=== PATIENT | male | born 1935 | race Hispanic/Latino ===

== ENCOUNTER 2017-01-26 14:09 | Inpatient (IN) | payer MEDICARE, BC ==
[2017-01-26 14:50] VITALS: BMI 26.2
--- NOTE | 2017-01-26 14:57 | ED PDOC ---
Arrival/HPI - General Chief Complaint: Medical Clearance Time Seen by Provider: 01/26/17 14:54 Historian: Patient - History of Present Illness Narrative History of Present Illness (Text): 01/26/17 14:55 81 year old male with a past medical history that includes COPD, not on home O2 , sent by PMD for evaluation of shortness of breath, cough, and decreased appetite for the past five days. Denies fever/chills, abdominal pain, chest pain , palpitations, dizziness, lower extremity swelling, urinary/bowel changes, headache, or vision changes. PMD: Dr. Baez Time/Duration: < week Symptom Onset: Gradual Symptom Course: Unchanged Modifying Factors (Text): None Associated Symptoms (Text): None Past Medical History - Provider Review Nursing Documentation Reviewed: Yes - Infectious Disease Hx of Infectious Diseases: None - Tetanus Immunization Tetanus Immunization: Unknown - Cardiac Hx Cardiac Disorders: Yes Hx Atrial Fibrillation: Yes Hx Hypertension: Yes - Pulmonary Hx Chronic Obstructive Pulmonary Disease (COPD): Yes - Neurological Hx Neurological Disorder: Yes - HEENT Hx HEENT Disorder: Yes Hx Cataracts: Yes (BILATERAL SX) Hx Deafness: Yes - Renal Hx Renal Disorder: No - Endocrine/Metabolic Hx Endocrine Disorders: No - Hematological/Oncological Hx Blood Disorders: Yes Hx Cancer: Yes (colon, skin) - Integumentary Hx Dermatological Disorder: Yes Hx Melanoma: Yes (TIP OF NOSE AND SHOULDERS) - Musculoskeletal/Rheumatological Hx Musculoskeletal Disorders: Yes Hx Falls: Yes Hx Gout: Yes Hx Osteoarthritis: Yes Hx Unsteady Gait: Yes (CANE) - Gastrointestinal Hx Gastrointestinal Disorders: Yes Other/Comment: COLON SURGERY - Genitourinary/Gynecological Hx Genitourinary Disorders: No - Psychiatric Hx Depression: No Hx Emotional Abuse: No Hx Physical Abuse: No Hx Substance Use: No - Surgical History Other/Comment: colon surgery,oral surgery - Anesthesia Hx Anesthesia Reactions: No - Suicidal Assessment Feels Threatened In Home Enviroment: No Family/Social History - Physician Review Nursing Documentation Reviewed: Yes Family/Social History: Unknown Family HX Smoking Status: Former Smoker Hx Alcohol Use: Yes (WINE DAILY) Hx Substance Use: No Hx Substance Use Treatment: No Allergies/Home Meds Allergies/Adverse Reactions: Allergies No Known Allergies Allergy (Verified 01/26/17 14:46) Home Medications: Home Meds Medication Instructions Recorded Confirmed Allopurinol 300 mg PO DAILY 12/10/14 03/09/16 Tamsulosin [Flomax] 0.4 mg PO DAILY 12/10/14 03/09/16 Warfarin [Coumadin] 2 mg PO DAILY 12/10/14 03/09/16 Digoxin [Lanoxin] 0.125 mg PO DAILY 03/09/16 03/09/16 Folic Acid 1 tab PO DAILY 03/09/16 03/09/16 Metoprolol Tartrate 75 mg PO DAILY 03/09/16 03/09/16 Omeprazole 20 mg PO DAILY 03/09/16 03/09/16 Simvastatin 10 mg PO DAILY 03/09/16 03/09/16 Review of Systems - Review of Systems Constitutional: absent: Fevers Eyes: absent: Vision Changes ENT: absent: Sore Throat Respiratory: SOB, Cough Cardiovascular: absent: Chest Pain, Palpitations Gastrointestinal: Appetite Changes (decreased). absent: Abdominal Pain, Hematochezia Genitourinary Male: absent: Dysuria, Frequency, Hematuria Musculoskeletal: absent: Back Pain Skin: absent: Rash Neurological: absent: Headache, Dizziness Endocrine: absent: Diaphoresis Psychiatric: absent: Depression Physical Exam Vital Signs Reviewed: Yes Vital Signs Temp Pulse Resp BP Pulse Ox 01/26/17 16:50 134/84 01/26/17 16:41 117 H 18 134/83 97 01/26/17 14:40 99.1 F 116 H 18 118/71 97 01/26/17 14:09 99.1 F 116 H 18 118/71 97 Temperature: Afebrile Blood Pressure: Normal Pulse: Tachycardic Respiratory Rate: Normal Appearance: Positive for: Well-Appearing, Non-Toxic, Comfortable Pain Distress: None Mental Status: Positive for: Alert and Oriented X 3 - Systems Exam Head: Present: Atraumatic, Normocephalic Pupils: Present: PERRL Conjunctiva: Present: Normal Mouth: Present: Moist Mucous Membranes Pharnyx: Present: Normal. No: ERYTHEMA, EXUDATE Neck: Present: Normal Range of Motion Respiratory/Chest: Present: Good Air Exchange, Wheezes. No: Respiratory Distress, Accessory Muscle Use Cardiovascular: Present: Normal S1, S2, Irregular Rhythm, Tachycardic. No: Murmurs Abdomen: Present: Normal Bowel Sounds. No: Tenderness, Distention, Peritoneal Signs Back: Present: Normal Inspection Upper Extremity: Present: Normal Inspection. No: Cyanosis, Edema Lower Extremity: Present: Normal Inspection. No: Edema Neurological: Present: GCS=15, CN II-XII Intact, Speech Normal Skin: Present: Warm, Dry, Normal Color. No: Rashes Psychiatric: Present: Alert, Oriented x 3, Normal Insight, Normal Concentration Medical Decision Making ED Course and Treatment: Impression: 81 year old male with a past medical history that includes COPD, not on home O2, sent by PMD for evaluation of shortness of breath, cough, and decreased appetite for the past five days. Differential Diagnosis included but are not limited to: COPD exacerbation vs pneumonia Plan: -- EKG, Chest X-ray -- Atrovent, SoluMedrol, Robitussin, Xopenex -- Labs -- Reassess and disposition Prior Visits: Notes and results from previous visits were reviewed. Patient last seen in the ED on 03/09/16 for dyspnea and admitted for obstructive chronic bronchitis with exacerbation Progress Notes: Labs show leukocytosis with CXR showing LLL inf. Chemistry showing troponin slightly high and BNP 24K, but CXR shows no CHF - will add furosemide.Pat 01/26/17 16:50 Patient with tachycardia, elderly, underlying COPD with pneumonia - will need tba - discussed with Dr. Sawyer, hospitalist for admission. Also d/w Dr. Baez. - Lab Interpretations Lab Results: 01/26/17 15:14 01/26/17 15:14 Lab Results 01/26/17 15:14: WBC 13.9 H D, RBC 3.85, Hgb 13.6 L, Hct 39.3 L, MCV 102.1, MCH 35.3 H, MCHC 34.6, RDW 12.7, Plt Count 278, MPV 10.2, Gran % 79.7 H, Lymph % ( Auto) 10.0 L, [place] % (Auto) 10.1 H, Eos % (Auto) 0.1 L, Baso % (Auto) 0.1, Gran # 11.09 H, Lymph # 1.4, [place] # 1.4 H, Eos # 0.0, Baso # 0.02, Sodium 139, Potassium 4.9, Chloride 96 L, Carbon Dioxide 26, Anion Gap 22 H, BUN 19, Creatinine 0.9, Est GFR ( Amer) > 60, Est GFR (Non-Af Amer) > 60, Random Glucose 157 H, Calcium 9.8, Total Bilirubin 1.2, AST 59, ALT 27, Alkaline Phosphatase 88, Lactate Dehydrogenase 496, Total Creatine Kinase 99, Troponin I 0.17 H* D, NT-Pro-B Natriuret Pep 24282 H, Total Protein 8.2, Albumin 4.3, Globulin 3.9, Albumin/Globulin Ratio 1.1, Lipase 44 - RAD Interpretation Radiology Orders: 01/26/17 15:00 CHEST PORTABLE [RAD] Stat - EKG Interpretation EKG Interpretation (Text): EKG shows atrial fibrillation at 119 BPM with inverted t-waves in I and AVL not present in previous EKG on 03/09/16, Left axis deviation, right bundle branch block, QRS = 122. Interpreted by ED Physician: Yes Type: 12 lead EKG - Medication Orders Current Medication Orders: Allopurinol (Zyloprim) 300 mg PO DAILY CARLOS Atorvastatin Calcium (Lipitor) 10 mg PO DIN CARLOS Digoxin (Lanoxin) 0.125 mg PO 1400 CARLOS Folic Acid (Folic Acid) 1 mg PO DAILY CARLOS Azithromycin (Zithromax 500mg In Ns) 250 mls @ 167 mls/hr IVPB STAT STA PRN Reason: Protocol Stop: 01/26/17 17:21 Levalbuterol HCl (Xopenex) 0.63 mg IH TIDRESP CARLOS Metoprolol Tartrate (Lopressor) 75 mg PO BRKDIN CARLOS Tamsulosin HCl (Flomax) 0.4 mg PO DAILY CARLOS Discontinued Medications Furosemide (Lasix) 40 mg IVP STAT STA Stop: 01/26/17 16:04 Last Admin: 01/26/17 16:50 Dose: 40 MG MAR Blood Pressure Document 01/26/17 16:50 SS (Rec: 01/26/17 16:50 [place] [facility] [id number] Blood Pressure Blood Pressure (100/60-150/90) 134/84 IVP Administration Document 01/26/17 16:50 SS (Rec: 01/26/17 16:50 SS [facility] [id number] Charges for Administration # of IVP Administrations 1 Guaifenesin (Robitussin) 400 mg PO ONCE STA Stop: 01/26/17 15:04 Last Admin: 01/26/17 15:21 Dose: 400 MG Sodium Chloride (Sodium Chloride 0.9%) 500 mls @ 999 mls/hr IV .Q31M STA Stop: 01/26/17 15:31 Last Admin: 01/26/17 15:24 Dose: 999 MLS/HR eMAR Start Stop Document 01/26/17 15:24 SS (Rec: 01/26/17 15:24 [place] [facility] [id number] Intravenous Solution Start Date 01/26/17 Start Time 15:24 End Date 01/26/17 End time 15:54 Total Infusion Time 30 Ceftriaxone Sodium (Rocephin 1 Gram Ivpb) 100 mls @ 200 mls/hr IV ONCE STA PRN Reason: Protocol Stop: 01/26/17 16:21 Last Admin: 01/26/17 16:28 Dose: 200 MLS/HR eMAR Start Stop Document 01/26/17 16:28 SS (Rec: 01/26/17 16:39 SS [facility] [id number] Intravenous Solution Start Date 01/26/17 Start Time 16:39 End Date 01/26/17 End time 17:09 Total Infusion Time 30 Azithromycin 500 mg/ (Azithromycin) 250 mls @ 167 mls/hr IVPB STAT STA PRN Reason: Protocol Stop: 01/26/17 17:21 Ipratropium Cook (Atrovent) 0.5 mg IH STAT STA Stop: 01/26/17 15:01 Last Admin: 01/26/17 15:23 Dose: 0.5 MG Ipratropium Cook (Atrovent) 0.5 mg IH STAT STA Stop: 01/26/17 15:02 Last Admin: 01/26/17 16:49 Dose: 0.5 MG Levalbuterol HCl (Xopenex) 1.25 mg IH STAT STA Stop: 01/26/17 15:01 Last Admin: 01/26/17 15:45 Dose: 1.25 MG Levalbuterol HCl (Xopenex) 1.25 mg IH STAT STA Stop: 01/26/17 15:01 Last Admin: 01/26/17 15:45 Dose: 1.25 MG Methylprednisolone (Solu-Medrol) 125 mg IVP STAT STA Stop: 01/26/17 15:01 Last Admin: 01/26/17 15:21 Dose: 125 MG IVP Administration Document 04/04/17 15:21 SS (Rec: 01/26/17 15:21 SS [facility] [id number]) Charges for Administration # of IVP Administrations 1 - Scribe Statement The provider has reviewed the documentation as recorded by the Zion Waldron Provider Scribe Attestation: All medical record entries made by the Scribe were at my direction and personally dictated by me. I have reviewed the chart and agree that the record accurately reflects my personal performance of the history, physical exam, medical decision making, and the department course for this patient. I have also personally directed, reviewed, and agree with the discharge instructions and disposition. Disposition/Present on Arrival - Present on Arrival Any Indicators Present on Arrival: Yes History of DVT/PE: Yes History of Uncontrolled Diabetes: No Urinary Catheter: No History of Decub. Ulcer: No History Surgical Site Infection Following: None - Disposition Have Diagnosis and Disposition been Completed?: Yes Diagnosis: Pneumonia, Atrial fibrillation, COPD exacerbation Disposition: HOSPITALIZED Disposition Time: 16:00 Patient Plan: Admission, Telemetry Patient Problems: Current Active Problems Problem Status Diagnosed Atrial fibrillation Acute DVT (deep venous thrombosis) Acute Encounter for current long-term use of anticoagulants Acute Gait instability Acute Near syncope Acute Condition: FAIR
[2017-01-26] MEDS ORDERED: Levalbuterol 1.25 MG/3 ML Inhal Soln UD IH STA (15:00)
[2017-01-26] MEDS ORDERED: Ipratropium 0.02% Inhal Soln (0.5 mg/2.5 ml) UD IH STA ×2 (15:00→15:01)
[2017-01-26] MEDS ORDERED: Sodium Chloride 0.9% 500 ML IV STA (15:01)
[2017-01-26] MEDS ORDERED: guaiFENesin 200 mg/10 ml Syrup UD PO STA (15:03)
[2017-01-26] MEDS: Levalbuterol 1.25 MG/3 ML Inhal Soln UD IH STA ×2 (15:24→15:45)
[2017-01-26 15:26] LABS: ADD MANUAL DIFF? NO
[2017-01-26 15:32] LABS: BASO # 0.02 K/mm3 (0.0-2.0); BASO % 0.1 % (0.0-3.0); EOS % 0.1 % (1.5-5.0); GRAN # 11.09 (1.4-6.5); GRAN % 79.7 % (50.0-68.0); HEMATOCRIT 39.3 % (42.0-52.0); LYMPH # 1.4 (1.2-3.4); MEAN CELL VOLUME 102.1 fL (80.0-105.0); MEAN CORPUSCULAR HEMOGLOBIN 35.3 pg (25.0-35.0); MEAN CORPUSCULAR HGB CONC 34.6 g/dl (31.0-37.0); MEAN PLATELET VOLUME 10.2 fl (7.0-11.0); MONO # 1.4 (0.1-0.6); MONO % 10.1 % (1.0-6.0); PLATELET COUNT 278 10^3/uL (120.0-450.0); RED CELL DISTRIBUTION WIDTH 12.7 % (11.5-14.5); WHITE BLOOD COUNT 13.9 10^3/ul (4.5-11.0)
[2017-01-26 15:40] LABS: ALB/GLOB RATIO 1.1 (1.1-1.8); ALKALINE PHOSPHATASE 88 U/L (38-133); ALT/SGPT 27 U/L (7-56); AST/SGOT 59 U/L (15-59); BILIRUBIN,TOTAL 1.2 mg/dL (0.2-1.3); BLOOD UREA NITROGEN 19 mg/dL (7-21); CALCIUM 9.8 mg/dL (8.4-10.5); CARBON DIOXIDE 26 mmol/L (21-33); CHLORIDE 96 mmol/L (98-107); GFR AFRICAN-AMERICAN > 60; GLUCOSE,RANDOM 157 mg/dL (70-110); LIPASE 44 U/L (23-300); POTASSIUM 4.9 mmol/L (3.6-5.0); SODIUM 139 mmol/L (132-148); TOTAL PROTEIN 8.2 g/dL (5.8-8.3)
--- NOTE | 2017-01-26 15:44 | RAD ---
HISTORY: cough, sob COMPARISON: No prior. FINDINGS: LUNGS: Left lower lobe infiltrate consistent with pneumonia PLEURA: No significant pleural effusion identified, no pneumothorax apparent. CARDIOVASCULAR: Normal. OSSEOUS STRUCTURES: No significant abnormalities. VISUALIZED UPPER ABDOMEN: Normal. OTHER FINDINGS: None. IMPRESSION: Left lower lobe pneumonia
[2017-01-26] MEDS ORDERED: Azithromycin 500 MG in Azithromycin 500MG/NS 250ml 250 ML IVPB STA (15:52)
[2017-01-26] MEDS ORDERED: cefTRIAXone 1 gm 100 ML IV STA (15:52)
[2017-01-26] MEDS ORDERED: Azithromycin 500MG/NS 250ml 250 ML IVPB STA (15:56)
[2017-01-26 15:59] LABS: TROPONIN I 0.17 ng/mL
[2017-01-26] MEDS: MethylPREDNISolone 40 mg Vial IVP SCH (17:03)
[2017-01-26 17:11] LABS: INR 4.02 (0.93-1.08); PARTIAL THROMBOPLASTIN TIME 49.7 Seconds (23.7-30.8)
--- NOTE | 2017-01-26 17:22 | CP.PCM.HP ---
<Ha Beard - Last Filed: 01/26/17 17:42> History of Present Illness - History of Present Illness History of Present Illness: CC: Shortness of breath and Cough 81 M with PMH CHF, COPD, Atrial fibrillation, history of Colon CA, melanoma, history of DVT presents to [facility] [place] with complaint of shortness of breath and cough. was bedside with patient and provided most of the history. Per patient and , symptoms began one week ago and have gotten progressively worse within the last 2 days. Patient has experienced similar symptoms years ago due to CHF exacerbation. Earlier today, patient was shaving when he became extremely tired and had to sit down. The same thing occurred when he attempted to put on his socks. That is when his decided to call Dr. Vicente and he instructed her to bring him to the hospital today. Patient denied any pain. His had try giving him mucinex for last 2 days, which provided minimal relief. Nothing alleviates his symptoms while any exertion exacerbates them. Patient had an echo last year which showed normal LV EF. Patient stated that he sleeps with one pillow. His reports that he can only walk small distances at home before getting short of breath. He ambulates with a can if he leaves the house. Admits to dizziness/lightheadedness and productive cough with reji sputum. Denies fever/chills, syncope, vertigo, cp, palpitations, abd pain, n/v/d, constipation, incontinence, numbness/tingling. PMD: Dr. Vicente Cardio: Dr. Huston Pulm: Dr. Roberson PMH: CHF, COPD, Atrial fibrillation, history of Colon CA, melanoma, HLD, history of DVT, gout, BPH, Vitamin D deficiency, GERD Meds: Omeprazole 20 mg PO daily, Metoprolol 75 mg PO BID, Digoxin 0.125 mg PO daily, Tamulosin 0.4 mg PO daily, Coumadin 2 mg PO daily, Simvastatin 10 mg PO HS, Allopurinol 300 mg PO daily PRN, Magnesium Hydroxide 400 mg PO BID, Lasix 40 mg PO daily PRN, Ipratropium/Albuterol 0.5 mg/ 3 mg 3ml IH QID, Budesonide 0.5 mg/2 mL IH BID Allergy: NKDA PSH: Colon resection, multiple skin excisional biopsies Hosp: DVT, CHF Social: 50 year pack history (quit 25 years ago), drinks 1 glass of wine per night, denies illicit drug use Present on Admission - Present on Admission Any Indicators Present on Admission: Yes History of DVT/PE: Yes History of Uncontrolled Diabetes: No Urinary Catheter: No Decubitus Ulcer Present: No Review of Systems - Review of Systems All systems: reviewed and no additional remarkable complaints except (as per HPI ) Past Patient History - Infectious Disease Hx of Infectious Diseases: None - Tetanus Immunizations Tetanus Immunization: Unknown - Past Social History Smoking Status: Former Smoker - CARDIAC Hx Cardiac Disorders: Yes Hx Atrial Fibrillation: Yes Hx Hypertension: Yes - PULMONARY Hx Chronic Obstructive Pulmonary Disease (COPD): Yes - NEUROLOGICAL Hx Neurological Disorder: Yes - HEENT Hx HEENT Problems: Yes Hx Cataracts: Yes (BILATERAL SX) Hx Deafness: Yes - RENAL Hx Chronic Kidney Disease: No - ENDOCRINE/METABOLIC Hx Endocrine Disorders: No - HEMATOLOGICAL/ONCOLOGICAL Hx Blood Disorders: Yes Hx Cancer: Yes (colon, skin) - INTEGUMENTARY Hx Dermatological Problems: Yes Hx Melanoma: Yes (TIP OF NOSE AND SHOULDERS) - MUSCULOSKELETAL/RHEUMATOLOGICAL Hx Musculoskeletal Disorders: Yes Hx Falls: Yes Hx Gout: Yes Hx Osteoarthritis: Yes Hx Unsteady Gait: Yes (CANE) - GASTROINTESTINAL Hx Gastrointestinal Disorders: Yes Other/Comment: COLON SURGERY - GENITOURINARY/GYNECOLOGICAL Hx Genitourinary Disorders: No - PSYCHIATRIC Hx Depression: No Hx Emotional Abuse: No Hx Physical Abuse: No Hx Substance Use: No - SURGICAL HISTORY Other/Comment: colon surgery,oral surgery - ANESTHESIA Hx Anesthesia Reactions: No Meds Allergies/Adverse Reactions: Allergies Allergy/AdvReac Type Severity Reaction Status Date / Time No Known Allergies Allergy Verified 01/26/17 14:46 Physical Exam - Constitutional Appears: No Acute Distress - Head Exam Head Exam: ATRAUMATIC, NORMOCEPHALIC - Eye Exam Eye Exam: EOMI, Normal appearance Pupil Exam: PERRL - ENT Exam ENT Exam: Mucous Membranes Moist - Neck Exam Neck exam: Positive for: Normal Inspection - Respiratory Exam Respiratory Exam: Decreased Breath Sounds, NORMAL BREATHING PATTERN. absent: Accessory Muscle Use, Respiratory Distress - Cardiovascular Exam Cardiovascular Exam: Tachycardia, +S1, +S2 Additional comments: afib 126 bpm - GI/Abdominal Exam GI & Abdominal Exam: Normal Bowel Sounds, Soft. absent: Distended, Firm, Guarding, Rebound, Tenderness - Extremities Exam Extremities exam: Positive for: normal capillary refill, pedal pulses present. Negative for: calf tenderness, pedal edema - Back Exam Back exam: absent: CVA tenderness (L), CVA tenderness (R) - Neurological Exam Neurological exam: Alert, CN II-XII Intact, Oriented x3 - Psychiatric Exam Psychiatric exam: Normal Affect, Normal Mood - Skin Skin Exam: Dry, Intact, Normal Color, Warm Results - Vital Signs Recent Vital Signs: Last Vital Signs Temp 99.1 F 01/26/17 14:40 Pulse 117 H 01/26/17 16:41 Resp 18 01/26/17 16:41 BP 134/84 01/26/17 16:50 Pulse Ox 97 01/26/17 16:41 - Labs Result Diagrams: 01/26/17 15:14 01/26/17 15:14 Labs: Laboratory Results - last 24 hr 01/26/17 15:14 WBC 13.9 H D RBC 3.85 Hgb 13.6 L Hct 39.3 L MCV 102.1 MCH 35.3 H MCHC 34.6 RDW 12.7 Plt Count 278 MPV 10.2 Gran % 79.7 H Lymph % (Auto) 10.0 L [place] % (Auto) 10.1 H Eos % (Auto) 0.1 L Baso % (Auto) 0.1 Gran # 11.09 H Lymph # 1.4 [place] # 1.4 H Eos # 0.0 Baso # 0.02 Sodium 139 Potassium 4.9 Chloride 96 L Carbon Dioxide 26 Anion Gap 22 H BUN 19 Creatinine 0.9 Est GFR ( Amer) > 60 Est GFR (Non-Af Amer) > 60 Random Glucose 157 H Calcium 9.8 Total Bilirubin 1.2 AST 59 ALT 27 Alkaline Phosphatase 88 Lactate Dehydrogenase 496 Total Creatine Kinase 99 Troponin I 0.17 H* D NT-Pro-B Natriuret Pep 07901 H Total Protein 8.2 Albumin 4.3 Globulin 3.9 Albumin/Globulin Ratio 1.1 Lipase 44 Assessment & Plan - Assessment and Plan (Free Text) Plan: 1. Community-Acquired Pneumonia Admit to telemetry Cardio consult, Dr. Huston, help appreciated Pulm consult, Dr. Roberson, help appreciated Xopenex 0.63 mg IN TIDRESP Budesonide 0.25 mg IH [id number] Rocephin 1 gm IVPB daily Azithromycin 500 mg PO daily Robotussin 100 mg PO Q4H PRN ECHO EKG CXR shows LLL pneumonia UA Blood culture Sputum culture 2. Elevated Troponin heart strain vs cardiac event Cardiac enzymes x 3 - first one slightly elevated (0.17) Cardio consult, Dr. Huston, help appreciated ECHO EKG 3. Atrial fibrillation Cardio consult, Dr. Huston, help appreciated f/u INR Hold Coumadin dose until INR is back Digoxin 0.125 PO daily Metoprolol 75 mg PO BID ECHO EKG 4. CHF Cardio consult, Dr. Huston, help appreciated BNP [id number] Digoxin 0.125 PO daily Metoprolol 75 mg PO BID ECHO EKG 5. COPD Pulm consult, Dr. Roberson, help appreciated Xopenex 0.63 mg IN TIDRESP Budesonide 0.25 mg IH [id number] Rocephin 1 gm IVPB daily Azithromycin 500 mg PO daily Robotussin 100 mg PO Q4H PRN CXR shows LLL pneumonia Blood culture Sputum culture 6. History of DVT f/u INR Hold Coumadin dose until INR is back 7. HLD Lipitor 10 mg PO HS 8. BPH Flomax 0.4 mg PO daily 9. Gout Allopurinol 300 mg PO daily 10. Prophylactic Measures Protonix 40 mg PO daily Folic Acid 1 mg PO daily PT HHD Aspiration and Fall precautions Elevate head of Bed to 30 degrees <Eula Sawyer - Last Filed: 01/27/17 14:25> Results - Vital Signs Recent Vital Signs: Last Vital Signs Temp 97.1 F L 01/27/17 12:00 Pulse 98 H 01/27/17 12:00 Resp 19 01/27/17 12:00 BP 134/79 01/27/17 12:00 Pulse Ox 98 01/27/17 06:00 - Labs Result Diagrams: 01/27/17 06:30 01/27/17 06:30 Labs: Laboratory Results - last 24 hr 01/26/17 01/27/17 21:59 06:30 WBC 9.9 D RBC 3.43 L Hgb 11.9 L Hct 35.0 L MCV 102.0 MCH 34.7 MCHC 34.0 RDW 12.9 Plt Count 259 MPV 10.5 PT 26.1 H INR 2.42 H Sodium 140 Potassium 4.1 Chloride 99 Carbon Dioxide 26 Anion Gap 19 BUN 24 H Creatinine 1.0 Est GFR ( Amer) > 60 Est GFR (Non-Af Amer) > 60 Random Glucose 160 H Calcium 9.0 Lactate Dehydrogenase 426 463 Total Creatine Kinase 93 79 Troponin I 0.12 D 0.09 D Assessment & Plan - Assessment and Plan (Free Text) Assessment: Attending note; Patient seen and examined with resident in ER. Patient is a 81 Male with PMH CHF, COPD, Atrial fibrillation, history of Colon CA, melanoma, history of DVT presents to [facility] with complaint of shortness of breath and cough. chest x-ray showed left lower lobe pneumonia. Continue oxygen, DuoNeb, IV Rocephin and Zithromax. Elevated INR; will hold Coumadin Today. no active bleeding. rapid A. fib; one dose of IV Digoxin given. Elevated troponin; possible demand ischemia. Monitor troponin trending. Case discussed with patient's in detail. upon discharge the patient will follow-up with PMD Dr. Baez. Attending/Attestation - Attestation I have personally seen and examined this patient.: Yes I have fully participated in the care of the patient.: Yes I have reviewed all pertinent clinical information: Yes
[2017-01-26] MEDS: Levalbuterol 0.63 MG/3 ML Inhal Soln UD IH SCH ×2 (17:29→20:55)
[2017-01-26] MEDS: Digoxin 125 mcg (0.125 mg) Tab PO SCH (17:47)
[2017-01-26] MEDS ORDERED: Digoxin 500 mcg/2ml (0.5 mg/2ml) Inj IVP ONE (17:54)
--- NOTE | 2017-01-26 18:44 | CARD ---
APPROVED REPORT EKG Measurement Heart [id number] <Conclusion> Atrial fibrillation with rapid ventricular response Right bundle branch block Left anterior fascicular block Bifascicular block T wave abnormality, consider lateral ischemia or digitalis effect Abnormal ECG
[2017-01-26] MEDS: Budesonide 0.25 mg/2 ml Inhal Susp UD IH SCH (21:36)
[2017-01-26] MEDS: guaiFENesin 100 mg/5 ml Syrup UD PO PRN (21:39)
[2017-01-26 22:36] LABS: TROPONIN I 0.12 ng/mL
[2017-01-27] MEDS: MethylPREDNISolone 40 mg Vial IVP SCH ×2 (05:15)
[2017-01-27] MEDS: guaiFENesin 100 mg/5 ml Syrup UD PO PRN ×2 (05:16→23:01)
[2017-01-27 05:21] LABS: URINE BILIRUBIN NEGATIVE (NEGATIVE); URINE BLOOD NEGATIVE (NEGATIVE); URINE GLUCOSE (UA) NEGATIVE (NEGATIVE); URINE KETONE TRACE mg/dL (NEGATIVE); URINE LEUKOCYTE ESTERASE NEGATIVE Leu/uL (NEGATIVE); URINE PROTEIN NEGATIVE mg/dL (<30 mg/dL); URINE UROBILINOGEN 0.2 E.U./dL (<1 E.U./dL)
[2017-01-27 05:24] LABS: URINE APPEARANCE CLEAR (CLEAR); URINE COLOR YELLOW (YELLOW)
[2017-01-27] MEDS ORDERED: Albuterol-Ipratrop 3 mg / 0.5 (3 ml) UD IH STA (05:29)
[2017-01-27] MEDS: Pantoprazole 40 mg EC Tab PO SCH (05:43)
[2017-01-27] MEDS ORDERED: METHYLPREDNISOLONE 40 MG IV SCH (07:00)
[2017-01-27 07:19] LABS: INR 2.42 (0.93-1.08)
[2017-01-27 07:32] LABS: BLOOD UREA NITROGEN 24 mg/dL (7-21); CARBON DIOXIDE 26 mmol/L (21-33); CHLORIDE 99 mmol/L (98-107); GFR AFRICAN-AMERICAN > 60; GLUCOSE,RANDOM 160 mg/dL (70-110); POTASSIUM 4.1 mmol/L (3.6-5.0); SODIUM 140 mmol/L (132-148)
[2017-01-27 07:34] LABS: TROPONIN I 0.09 ng/mL
[2017-01-27 08:01] LABS: MEAN CORPUSCULAR HEMOGLOBIN 34.7 pg (25.0-35.0); MEAN PLATELET VOLUME 10.5 fl (7.0-11.0); RED CELL DISTRIBUTION WIDTH 12.9 % (11.5-14.5); WHITE BLOOD COUNT 9.9 10^3/ul (4.5-11.0)
[2017-01-27] MEDS: Arformoterol 15 mcg/2 ml Inh Sol IH SCH ×2 (08:07→20:02)
[2017-01-27] MEDS: Budesonide 0.25 mg/2 ml Inhal Susp UD IH SCH ×2 (08:07→20:03)
[2017-01-27] MEDS: Levalbuterol 0.63 MG/3 ML Inhal Soln UD IH SCH ×3 (08:07→20:03)
--- NOTE | 2017-01-27 09:19 | CON ---
DATE: 01/27/2017 REASON FOR CONSULTATION: Pneumonia. REFERRING PHYSICIAN: Dr. Sawyer. HISTORY OF PRESENT ILLNESS: The patient is an 81-year-old male with past medical history significant for chronic obstructive pulmonary disease, deep venous thrombosis, inferior vena cava filter in the past, atrial fibrillation ( on Coumadin), chronic anemia, congestive heart failure in the past, colon cancer , who presents to [facility] with a 4-day history of worsening shortness of breath at rest, dyspnea on exertion, cough, and minimal sputum production. There is no history of chest pain, coughing up of blood or chest pain -- made worse with deep respirations. The patient did present to the Emergency Room with low grade fevers. No history of chills or infectious exposure. No history of night sweats, weight loss or appetite change prior to the above events. No history of leg or calf pains. No history of syncope or diaphoresis. No history of recent travel or trauma. REVIEW OF SYSTEMS: No history of nausea, vomiting or diarrhea. No acute urinary symptoms. No new neurological or musculoskeletal complaints. Rest of the review of systems is negative. ALLERGIES: No known allergies. SOCIAL HISTORY: Positive for tobacco, negative for alcohol. FAMILY HISTORY: No inheritable diseases. HOME MEDICATIONS: Include warfarin, Flomax, simvastatin, omeprazole, metoprolol , folate, Lanoxin, allopurinol. PHYSICAL EXAMINATION: GENERAL: The patient appears comfortable at rest. He is not short of breath. He is not using accessory muscles for breathing. VITAL SIGNS: Temperature is 97.8, pulse 64, respirations 18-20, blood pressure 97/69. Oxygen saturation on nasal cannula is 98%. HEENT: Normocephalic, atraumatic. NECK: No JVD. CARDIOVASCULAR: Systolic ejection murmur at the lower left sternal border. Questionable S3 gallop. LUNGS: Positive for crackles -- left base. Minimal bilateral rhonchi. No wheezing. EXTREMITIES: No clubbing, cyanosis, or edema. Calves are nontender to palpation. GASTROINTESTINAL: Abdomen is soft, nontender, nondistended. Bowel sounds are positive. SKIN: No acute rash. NEUROLOGIC: Limited at the present time. PERTINENT LABORATORY DATA: Chest x-ray was done and reviewed. There is a left lower lobe infiltrate seen. There is also a mild increase in pulmonary vascular congestive changes seen. CBC: White count 13.9, hemoglobin 13.6, hematocrit 39.3, platelets of 278. INR 4.02. Complete metabolic profile: Chloride 96, anion gap 22, glucose 157. Troponin 0.17. B-type natriuretic peptide 00592. Rest of the metabolic profile is within normal limits. IMPRESSION: 1. Left lower lobe pneumonia. 2. Acute bronchitis. 3. Chronic obstructive pulmonary disease. 4. Positive troponin, rule out myocardial infarction. 5. Mild congestive heart failure. 6. Atrial fibrillation. PLAN: The patient presents to [facility] with a 4-day history of worsening pulmonary symptoms. I did review the x-ray as above. The x-ray reveals an infiltrate at the left lower lobe area -- consistent with pneumonia. The chest x-ray also reveals a mild increase in the pulmonary vascular congestive changes. I have also reviewed the laboratory data. A significant rise in the troponin and B-type natriuretic peptide are noted. The BUN and creatinine are normal. Cardiology evaluation with Dr. Huston has been ordered. The patient has been pancultured and placed on appropriate antibiotic therapy. Temperatures have been decreasing -- since admission. Repeat a.m. labs are pending. On physical exam, only mild bronchospasm is noted. I will continue with the current nebulizer treatments and decrease the intravenous steroids this morning. The patient does feel better this morning -- compared to the past few days, and is clinically improved. Additional pulmonary intervention will be based on the clinical status of the patient. I will discuss the above with Dr. Sawyer. Thank you very much for this pulmonary consultation. Sachin Roberson MD cc: [id number] TT: 01/27/2017 09:18:43 Confirmation # [id number] Dictation # [id number] thomas DELGADO
[2017-01-27] MEDS: MethylPREDNISolone 40 mg Vial IV SCH ×3 (09:53→21:28)
--- NOTE | 2017-01-27 10:34 | CP.PCM.PN ---
<Lenore Blue - Last Filed: 01/27/17 12:36> Subjective - Date & Time of Evaluation Date of Evaluation: 01/27/17 Time of Evaluation: 07:45 - Subjective Subjective: Hospitalist progress note for Dr. Sawyer Pt s/e at bedside this AM. NAEO. Patient states that his breathing has improved , but reports a persistent intermittent cough producing chen mucus. Denies chest pain, palpitations, VALENTIN, fevers, chills, nausea, vomiting, abdominal pain, diarrhea, headache, or any other symptoms. All questions and concerns were addressed Objective - Vital Signs/Intake and Output Vital Signs (last 24 hours): Temp Pulse Resp BP Pulse Ox 97.8 F 64 20 97/69 L 98 01/27/17 06:00 01/27/17 07:41 01/27/17 06:00 01/27/17 07:41 01/27/17 06:00 Intake and Output: 01/27/17 01/27/17 06:59 18:59 Intake Total 240 Output Total 250 Balance -10 - Medications Medications: Current Medications Allopurinol (Zyloprim) 300 mg PO DAILY [facility] Last Admin: 01/26/17 16:59 Dose: Not Given Arformoterol Tartrate (Brovana) 15 mcg IH [id number] [facility] Last Admin: 01/27/17 08:07 Dose: 15 mcg Atorvastatin Calcium (Lipitor) 10 mg PO DIN [facility] Last Admin: 01/26/17 17:29 Dose: 10 mg Azithromycin (Zithromax) 500 mg PO DAILY [facility] PRN Reason: Protocol Last Admin: 01/26/17 17:03 Dose: Not Given Budesonide (Pulmicort Respules) 0.25 mg IH [id number] [facility] Last Admin: 01/27/17 08:07 Dose: 0.25 mg Digoxin (Lanoxin) 0.125 mg PO 1400 [facility] Last Admin: 01/26/17 17:47 Dose: Not Given Folic Acid (Folic Acid) 1 mg PO DAILY [facility] Last Admin: 01/26/17 17:00 Dose: Not Given Guaifenesin (Robitussin) 100 mg PO Q4H PRN PRN Reason: Cough Last Admin: 01/27/17 05:16 Dose: 100 mg Ceftriaxone Sodium (Rocephin 1 Gram Ivpb) 100 mls @ 100 mls/hr IVPB DAILY [facility] PRN Reason: Protocol Levalbuterol HCl (Xopenex) 0.63 mg IH TIDRESP [facility] Last Admin: 01/27/17 08:07 Dose: 0.63 mg Methylprednisolone (Solu-Medrol) 40 mg IV Q8 [facility] Last Admin: 01/27/17 09:53 Dose: 40 mg Metoprolol Tartrate (Lopressor) 50 mg PO BRKDIN [facility] Pantoprazole Sodium (Protonix Ec Tab) 40 mg PO 0630 [facility] Last Admin: 01/27/17 05:43 Dose: 40 mg Tamsulosin HCl (Flomax) 0.4 mg PO DAILY [facility] Last Admin: 01/26/17 17:00 Dose: Not Given - Labs Labs: 01/27/17 06:30 01/27/17 06:30 PT 26.1 Seconds (9.9-11.8) H 01/27/17 06:30 INR 2.42 (0.93-1.08) H 01/27/17 06:30 APTT 49.7 Seconds (23.7-30.8) H 01/26/17 15:14 - Constitutional Appears: Well, Non-toxic, No Acute Distress - Head Exam Head Exam: ATRAUMATIC, NORMOCEPHALIC - Eye Exam Eye Exam: Normal appearance - ENT Exam ENT Exam: Mucous Membranes Moist, Normal Oropharynx - Respiratory Exam Respiratory Exam: Clear to Ausculation Bilateral, Wheezes (mild end expiratory wheezes), NORMAL BREATHING PATTERN. absent: Accessory Muscle Use, Respiratory Distress - Cardiovascular Exam Cardiovascular Exam: RRR, +S1, +S2. absent: Murmur - GI/Abdominal Exam GI & Abdominal Exam: Soft. absent: Distended, Tenderness - Extremities Exam Extremities Exam: absent: Calf Tenderness, Pedal Edema, Tenderness - Back Exam Back Exam: NORMAL INSPECTION - Neurological Exam Neurological Exam: Alert, Awake, Oriented x3 - Psychiatric Exam Psychiatric exam: Normal Affect, Normal Mood - Skin Skin Exam: Dry, Intact, Normal Color, Warm Assessment and Plan - Assessment and Plan (Free Text) Assessment: 81M with PMH including CHF, COPD, a fib, DVT, and GERD who presented to the ED with 3 days of worsening SOB and cough 1. Community-Acquired Pneumonia Symptoms improving, no acute respiratory distress on 3L O2 via NC 01/27/16: CXR shows LLL pneumonia Continue admission on telemetry Cardiology consulted, recs appreciated Pulm recs: decrease solumedrol to 40mg Q8 Xopenex 0.63 mg IN TIDRESP Budesonide 0.25 mg IH [id number] Rocephin 1 gm IVPB daily Azithromycin 500 mg PO daily Robotussin 100 mg PO Q4H PRN ECHO taken, follow up results 3 episodes of afib with RBB on EKG overnight UA: trace ketones, no signs of a UTI Blood culture--results pending Sputum culture--results pending 2. Elevated Troponin heart strain vs cardiac event Cardiac enzymes x 3 - first one slightly elevated (0.17), decreased to 0.09 by third result Cardio consult, Dr. Huston: likely due to COPD/pulmonary stress, appreciate recs ECHO taken, follow up report EKG: afib with RBB, three episodes of Afib overnight 3. Atrial fibrillation Cardio consult, Dr. Huston, help appreciated INR within therapeutic range: 2.42 down from 4.02 yesterday Restart coumadin 2mg Digoxin level low at 0.5 yesterday: 0.125 PO daily HR 64, mild hypotension this AM: Decrease Metoprolol to 50 mg PO BID, hold dose this AM ECHO taken, follow up report EKG: afib with RBB, three episodes of Afib overnight 4. CHF Cardio consult, Dr. Huston, recs appreciated BNP [id number] Digoxin 0.125 PO daily Metoprolol 50 mg PO BID ECHO taken, follow up report EKG: afib with RBB, three episodes of Afib overnight 5. COPD Pulm consult, Dr. Roberson recs appreciated Xopenex 0.63 mg IN TIDRESP Budesonide 0.25 mg IH [id number] Rocephin 1 gm IVPB daily Azithromycin 500 mg PO daily Robotussin 100 mg PO Q4H PRN CXR shows LLL pneumonia Blood culture--results pending Sputum culture--results pending 6. History of DVT INR 2.4 within therapeutic range Restart coumadin 2mg 7. HLD Lipitor 10 mg PO HS 8. BPH Flomax 0.4 mg PO daily 9. Gout Allopurinol 300 mg PO daily 10. Prophylactic Measures Protonix 40 mg PO daily Folic Acid 1 mg PO daily PT HHD Aspiration and Fall precautions Elevate head of Bed to 30 degrees Dispo: anticipate continued inpatient admission on telemetry for at least another 24 hours <Eula Sawyer - Last Filed: 01/27/17 16:36> Objective - Vital Signs/Intake and Output Vital Signs (last 24 hours): Temp Pulse Resp BP Pulse Ox 97.1 F L 98 H 19 134/79 98 01/27/17 12:00 01/27/17 12:00 01/27/17 12:00 01/27/17 12:00 01/27/17 06:00 Intake and Output: 01/27/17 01/27/17 06:59 18:59 Intake Total 240 240 Output Total 250 250 Balance -10 -10 - Medications Medications: Current Medications Allopurinol (Zyloprim) 300 mg PO DAILY [facility] Last Admin: 01/27/17 11:30 Dose: 300 mg Arformoterol Tartrate (Brovana) 15 mcg IH [id number] [facility] Last Admin: 01/27/17 08:07 Dose: 15 mcg Atorvastatin Calcium (Lipitor) 10 mg PO DIN [facility] Last Admin: 01/26/17 17:29 Dose: 10 mg Azithromycin (Zithromax) 500 mg PO DAILY [facility] PRN Reason: Protocol Last Admin: 01/27/17 11:30 Dose: 500 mg Budesonide (Pulmicort Respules) 0.25 mg IH [id number] [facility] Last Admin: 01/27/17 08:07 Dose: 0.25 mg Digoxin (Lanoxin) 0.125 mg PO 1400 [facility] Last Admin: 01/27/17 15:02 Dose: 0.125 mg Folic Acid (Folic Acid) 1 mg PO DAILY [facility] Last Admin: 01/27/17 11:30 Dose: 1 mg Guaifenesin (Robitussin) 100 mg PO Q4H PRN PRN Reason: Cough Last Admin: 01/27/17 05:16 Dose: 100 mg Ceftriaxone Sodium (Rocephin 1 Gram Ivpb) 100 mls @ 100 mls/hr IVPB DAILY [facility] PRN Reason: Protocol Last Admin: 01/27/17 11:30 Dose: 100 mls/hr Levalbuterol HCl (Xopenex) 0.63 mg IH TIDRESP [facility] Last Admin: 01/27/17 13:33 Dose: 0.63 mg Methylprednisolone (Solu-Medrol) 40 mg IV Q8 [facility] Last Admin: 01/27/17 15:11 Dose: 40 mg Metoprolol Tartrate (Lopressor) 50 mg PO BRKDIN [facility] Pantoprazole Sodium (Protonix Ec Tab) 40 mg PO 0630 [facility] Last Admin: 01/27/17 05:43 Dose: 40 mg Tamsulosin HCl (Flomax) 0.4 mg PO DAILY [facility] Last Admin: 01/27/17 11:29 Dose: 0.4 mg Warfarin Sodium (Coumadin) 2 mg PO 1800 [facility] PRN Reason: Protocol - Labs Labs: 01/27/17 06:30 01/27/17 06:30 PT 26.1 Seconds (9.9-11.8) H 01/27/17 06:30 INR 2.42 (0.93-1.08) H 01/27/17 06:30 APTT 49.7 Seconds (23.7-30.8) H 01/26/17 15:14 Assessment and Plan - Assessment and Plan (Free Text) Assessment: Attending note; Patient seen and examined with resident. Patient is a 81 Male with PMH CHF, COPD, Atrial fibrillation, history of Colon CA, melanoma, history of DVT presents to [facility] with complaint of shortness of breath and cough. chest x-ray showed left lower lobe pneumonia. Continue oxygen, DuoNeb, IV Rocephin and Zithromax. Clinically improving. Pulm evaluation appreciated. INR is therapeutic. continue coumadin 2 mg daily. rapid A. fib; resolved. Elevated troponin; possible demand ischemia. troponin is trending down. Cardiology evaluation appreciated. PT evaluation ordered. Case discussed with patient's in detail. upon discharge the patient will follow-up with PMD Dr. Baez. case discussed with PMD in detail. Attending/Attestation - Attestation I have personally seen and examined this patient.: Yes I have fully participated in the care of the patient.: Yes I have reviewed all pertinent clinical information, including history, physical exam and plan: Yes
--- NOTE | 2017-01-27 11:05 | CON ---
DATE: 01/27/2017 REQUESTING PHYSICIAN: Dr. Sawyer. REASON FOR CONSULTATION: Atrial fibrillation and elevated troponin. HISTORY OF PRESENT ILLNESS: This is an 81-year-old man well known to me with a history of chronic at rial fibrillation, valvular heart disease and chronic obstructive pulmonary disease who presented to the Emergency Room with increasing cough, dyspnea and weakness yesterday. He had contacted Dr. Ken jolley and was advised Emergency Room evaluation. On chest x-ray, a small infiltrate is suspected, an d he has been started on antibiotics as well as bronchodilator therapy. Initial troponin was 0.17 an d followup is 0.09. He denies any chest pain. He was in atrial fibrillation with a rapid ventricula r response, but this is improved at this time. He claims compliance with his medication. He denies any fever at home. His cough has been nonproductive. PAST MEDICAL HISTORY: Notable for the problems mentioned above. He also has a history of hyperlipid emia, gout, BPH, prior colon cancer for which he underwent a partial colectomy in 1980, as well as a history of a DVT in 2014 and IVC filter was placed at that time. MEDICATIONS: At home included Prilosec 20 mg daily, metoprolol 75 mg b.i.d., digoxin 0.125 mg daily, Flomax 0.4 mg daily, simvastatin 10 mg daily, allopurinol 300 mg daily, folic acid, DuoNeb inhalers and Lasix 40 mg daily and Coumadin. ALLERGIES: None. SOCIAL HISTORY: He is and lives with his . He is retired. He is a former smoker, eden hewitt quit over 20 years ago. He has occasional alcohol. FAMILY HISTORY: Father from heart disease and had cancer, passing away at the age of 86. His m other had colon cancer and at the age of 84. REVIEW OF SYSTEMS: A 10-point review of systems is notable mainly for the problems mentioned above. PHYSICAL EXAMINATION: GENERAL: He is an elderly man who appears comfortable at the present time. VITAL SIGNS: His blood pressure is 96/70 with a pulse of 64 in atrial fibrillation, respirations are 14. He is afebrile. HEENT: Head is normocephalic, atraumatic. Pupils equal, reactive to light and accommodation. NECK: Supple. No JVD noted. CHEST: Bilateral scattered rhonchi and expiratory wheezing is heard. HEART: PMI displaced laterally with a systolic murmur noted at the lower left sternal border as well as the apex. A soft diastolic murmur is noted as well. ABDOMEN: Soft, nontender, normoactive bowel sounds. EXTREMITIES: No edema. SKIN: Warm and dry. PSYCHIATRIC: Normal mood and affect. NEUROLOGIC: Alert and oriented x 3. No gross motor or sensory deficits appreciable. DIAGNOSTIC DATA: Initial white count was 13.9, repeat is 9.9; hemoglobin and hematocrit are 11.9 and 35.0, with a platelet count 259,000. Initial INR 4.02, repeat is 2.4. Potassium 4.1, BUN and creat inine 24 and 1.0. Initial troponin 0.17, repeat 0.12 and repeat again was 0.09. BNP 24,000. Digoxi n level 0.5. Electrocardiogram reveals atrial fibrillation with a rapid ventricular response and rig ht bundle branch block and left anterior hemiblock. Chest x-ray reveals a left lower lobe infiltrate with a normal cardiac silhouette. IMPRESSION: 1. Apparent left lower lobe pneumonia, currently on antibiotic therapy and bronchodilator therapy. 2. Chronic atrial fibrillation initially with rapid ventricular response, now clinically improved. 3. History of chronic obstructive pulmonary disease. 4. Chronic atrial fibrillation. 5. Multivalvular heart disease with mitral and tricuspid regurgitation as well as mild to moderate a ortic insufficiency. RECOMMENDATIONS: His current treatment should continue. Close monitoring of his INR, given antibiot ic use, will be appropriate. His elevated BNP appears most likely due to his COPD and pneumonia, and he does not appear grossly volume overloaded at the present time. His borderline troponin is likely inconsequential and due to his respiratory distress and rapid atrial fibrillation upon presentation. We will continue to follow along and make further recommendations as appropriate. Salazar Huston MD cc: [id number] TT: 01/27/2017 11:04:53 Confirmation # [id number] Dictation # [id number] mn
[2017-01-27] MEDS: cefTRIAXone 1 gm 100 ML IVPB SCH (11:30)
[2017-01-27] MEDS: Digoxin 125 mcg (0.125 mg) Tab PO SCH (15:02)
[2017-01-28 06:36] VITALS: O2SAT 97
[2017-01-28] MEDS: Pantoprazole 40 mg EC Tab PO SCH (06:44)
[2017-01-28] MEDS: MethylPREDNISolone 40 mg Vial IV SCH (06:44)
[2017-01-28 07:02] LABS: INR 1.75 (0.93-1.08)
[2017-01-28 07:12] LABS: BLOOD UREA NITROGEN 37 mg/dL (7-21); CALCIUM 8.7 mg/dL (8.4-10.5); CARBON DIOXIDE 30 mmol/L (21-33); CHLORIDE 101 mmol/L (98-107); GFR AFRICAN-AMERICAN > 60; GLUCOSE,RANDOM 161 mg/dL (70-110); POTASSIUM 3.8 mmol/L (3.6-5.0); SODIUM 139 mmol/L (132-148)
[2017-01-28 08:21] LABS: HEMATOCRIT 32.2 % (42.0-52.0); MEAN CELL VOLUME 101.6 fL (80.0-105.0); MEAN CORPUSCULAR HEMOGLOBIN 34.4 pg (25.0-35.0); MEAN CORPUSCULAR HGB CONC 33.9 g/dl (31.0-37.0); MEAN PLATELET VOLUME 10.3 fl (7.0-11.0); RED CELL DISTRIBUTION WIDTH 12.8 % (11.5-14.5); WHITE BLOOD COUNT 10.8 10^3/ul (4.5-11.0)
[2017-01-28] MEDS: Budesonide 0.25 mg/2 ml Inhal Susp UD IH SCH ×2 (08:21→19:21)
[2017-01-28] MEDS: Arformoterol 15 mcg/2 ml Inh Sol IH SCH ×2 (08:21→19:21)
[2017-01-28] MEDS: Levalbuterol 0.63 MG/3 ML Inhal Soln UD IH SCH ×3 (08:22→19:22)
--- NOTE | 2017-01-28 08:55 | PN ---
DATE: 01/28/2017 SUBJECTIVE: The patient appears comfortable this morning. He is not short of breath at rest. OBJECTIVE: VITAL SIGNS: Temperature is 97.7, pulse 96, respirations 18, blood pressure 108 /78. Oxygen saturation on nasal cannula is 97%. HEENT: Normocephalic, atraumatic. No JVD. CARDIOVASCULAR: Systolic ejection murmur at the lower left sternal border. Questionable S3 gallop. LUNGS: Less crackles -- left base. Less rhonchi. No wheezing. EXTREMITIES: No clubbing, cyanosis, or edema. Calves are nontender to palpation. GASTROINTESTINAL: Abdomen is soft, nontender, nondistended. Bowel sounds are positive. SKIN: No acute rash. NEUROLOGIC: Limited at the present time. IMPRESSION: 1. Left lower lobe pneumonia. 2. Acute bronchitis. 3. Chronic obstructive pulmonary disease. 4. Positive troponin, rule out myocardial infarction. 5. Mild congestive heart failure. 6. Atrial fibrillation. PLAN: The patient appears comfortable this morning. He is not short of breath at rest. He states he is feeling much better overall. On physical exam, his bronchospasm is certainly less. I will continue with the current nebulizer treatments and decrease the intravenous steroids this morning. The patient also remains on antibiotic therapy. There are no temperatures noted. The leukocytosis has now resolved. I would continue with the cardiology evaluation. Input by Dr. Huston is noted. Clinical status of the patient is certainly improved -- compared to the initial presentation. The patient is advised to increase his activity as tolerated. I will discuss the above with the attending physician. Sachin Roberson MD cc: [id number] TT: 01/28/2017 08:54:53 Confirmation # [id number] Dictation # [id number] sanjiv DELGADO
--- NOTE | 2017-01-28 09:21 | CP.PCM.PN ---
Subjective - Date & Time of Evaluation Date of Evaluation: 01/28/17 Time of Evaluation: 08:00 - Subjective Subjective: Stable on 2R. No CP or SOB. He feels better. He wants to go home. V/S noted. AF PE: Lungs: rhonchi L>R Cor.: irreg., S1s2. Sys. murmur noted Abd.: soft Ext.; no edema Neuro.: alert I/O= 1077/1000 Labs noted. INR=1.75 BC x 2 NG at 24 hrs. Echo done: see report Objective - Vital Signs/Intake and Output Vital Signs (last 24 hours): Temp Pulse Resp BP Pulse Ox 97.7 F 96 H 18 108/78 97 01/28/17 06:00 01/28/17 06:00 01/28/17 06:00 01/28/17 06:00 01/28/17 06:00 Intake and Output: 01/28/17 01/28/17 06:59 18:59 Intake Total 837 Output Total 750 Balance 87 - Medications Medications: Current Medications Allopurinol (Zyloprim) 300 mg PO DAILY [facility] Last Admin: 01/27/17 11:30 Dose: 300 mg Arformoterol Tartrate (Brovana) 15 mcg IH [id number] [facility] Last Admin: 01/28/17 08:21 Dose: 15 mcg Atorvastatin Calcium (Lipitor) 10 mg PO DIN [facility] Last Admin: 01/27/17 18:34 Dose: 10 mg Azithromycin (Zithromax) 500 mg PO DAILY [facility] PRN Reason: Protocol Last Admin: 01/27/17 11:30 Dose: 500 mg Budesonide (Pulmicort Respules) 0.25 mg IH [id number] [facility] Last Admin: 01/28/17 08:21 Dose: 0.25 mg Digoxin (Lanoxin) 0.125 mg PO 1400 [facility] Last Admin: 01/27/17 15:02 Dose: 0.125 mg Folic Acid (Folic Acid) 1 mg PO DAILY [facility] Last Admin: 01/27/17 11:30 Dose: 1 mg Guaifenesin (Robitussin) 100 mg PO Q4H PRN PRN Reason: Cough Last Admin: 01/27/17 23:01 Dose: 100 mg Ceftriaxone Sodium (Rocephin 1 Gram Ivpb) 100 mls @ 100 mls/hr IVPB DAILY [facility] PRN Reason: Protocol Last Admin: 01/27/17 11:30 Dose: 100 mls/hr Levalbuterol HCl (Xopenex) 0.63 mg IH TIDRESP [facility] Last Admin: 01/28/17 08:22 Dose: 0.63 mg Methylprednisolone (Solu-Medrol) 40 mg IVP Q12 [facility] Metoprolol Tartrate (Lopressor) 50 mg PO BRKDIN [facility] Last Admin: 01/27/17 18:31 Dose: 50 mg Pantoprazole Sodium (Protonix Ec Tab) 40 mg PO 0630 [facility] Last Admin: 01/28/17 06:44 Dose: 40 mg Tamsulosin HCl (Flomax) 0.4 mg PO DAILY [facility] Last Admin: 01/27/17 11:29 Dose: 0.4 mg Warfarin Sodium (Coumadin) 4 mg PO 1800 [facility] PRN Reason: Protocol - Labs Labs: 01/28/17 05:30 01/28/17 05:30 PT 18.9 Seconds (9.9-11.8) H 01/28/17 05:30 INR 1.75 (0.93-1.08) H 01/28/17 05:30 APTT 49.7 Seconds (23.7-30.8) H 01/26/17 15:14 Assessment and Plan - Assessment and Plan (Free Text) Plan: Assessment: Cough/SOB/Weakness LLL Pneumonia COPD Chronic AF HLD BPH Colon cancer s/p partial colectomy DVT/IVC Filter Former Smoker Plan: As per Pulm. and Dr. Sawyer/Team AB Warfarin. Monitor INRs Continue cardiac meds OOB/PT
--- NOTE | 2017-01-28 09:29 | CARD ---
APPROVED REPORT EXAM: Two-dimensional and M-mode echocardiogram with Doppler and color Doppler. Other Information Quality : FairRhythm : INDICATION Dyspnea , Pneumonia, A. Fib. 2D DIMENSIONS Left Atrium (2D)5.0 (1.6-4.0cm)IVSd1.2 (0.7-1.1cm) LVDd4.5 (3.9-5.9cm)PWd1.2 (0.7-1.1cm) M-Mode DIMENSIONS Aortic Root4.10 (2.2-3.7cm)Aortic Cusp Exc.1.10 (1.5-2.0cm) Aortic Valve AoV Peak Oxosdaye500.0cm/sAoV VTI26.8cmAO Peak GR.12mmHg LVOT Peak Hcqmflvu16.5cm/sLVOT VTI15.40cmAO Mean GR.6mmHg Mitral Valve E/A ratio0.0 TDI E/Lateral E'0.0E/Medial E'0.0 Pulmonary Valve PV Peak Ritjqxfn71.6cm/sPV Peak Grad.2mmHg Tricuspid Valve TR Peak Gluwxnez125ql/sRAP HUUSUTUR80tqUnXG Peak Gr.42mmHg [id number] LEFT VENTRICLE The left ventricle is normal size. There is normal left ventricular wall thickness. Left ventricle systolic function is moderately impaired. The Ejection Fraction is 25-30%. The septum is moderately hypokinetic and the apex is akinetic. RIGHT VENTRICLE The right ventricle is normal size. ATRIA The left atrium is moderately dilated. The right atrium is moderately dilated. The interatrial septum is intact with no evidence for an atrial septal defect. AORTIC VALVE The aortic valve is moderately calcified. There is mild aortic regurgitation. MITRAL VALVE The mitral valve is normal in structure. Mitral annular calcification is moderate. Mitral regurgitation is moderate. TRICUSPID VALVE The tricuspid valve is normal in structure. There is mild tricuspid regurgitation. There is moderate pulmonary hypertension. PULMONIC VALVE The pulmonic valve is not well visualized. GREAT VESSELS The aortic root is normal in size. PERICARDIAL EFFUSION There is no pericardial effusion. <Conclusion> The left ventricle is normal size. There is normal left ventricular wall thickness. Left ventricle systolic function is moderately impaired. The Ejection Fraction is 25-30%. The septum is moderately hypokinetic and the apex is akinetic. The aortic valve is moderately calcified. Aortic sclerosis vs. mild . There is mild aortic regurgitation. Mitral regurgitation is moderate. There is mild tricuspid regurgitation. There is moderate pulmonary hypertension.
--- NOTE | 2017-01-28 10:12 | CP.PCM.PN ---
<Lenore Blue - Last Filed: 01/28/17 14:40> Subjective - Date & Time of Evaluation Date of Evaluation: 01/28/17 Time of Evaluation: 11:15 - Subjective Subjective: Hospitalist Progress Note for Dr. Sawyer Patient seen and examined at bedside. He states that he is feeling better but did not have a restful sleep. He does note fatigue with walking. Persistent but improving cough productive of thick, chen sputum. Denies SOB, fever, chills, vision changes, N/V/D/C, chest pain and palpitations. All questions and concerns were addressed. Objective - Vital Signs/Intake and Output Vital Signs (last 24 hours): Temp Pulse Resp BP Pulse Ox 97.7 F 96 H 18 108/78 97 01/28/17 06:00 01/28/17 06:00 01/28/17 06:00 01/28/17 06:00 01/28/17 06:00 Intake and Output: 01/28/17 01/28/17 06:59 18:59 Intake Total 837 Output Total 750 Balance 87 - Medications Medications: Current Medications Allopurinol (Zyloprim) 300 mg PO DAILY [facility] Last Admin: 01/27/17 11:30 Dose: 300 mg Arformoterol Tartrate (Brovana) 15 mcg IH [id number] [facility] Last Admin: 01/28/17 08:21 Dose: 15 mcg Atorvastatin Calcium (Lipitor) 10 mg PO DIN [facility] Last Admin: 01/27/17 18:34 Dose: 10 mg Azithromycin (Zithromax) 500 mg PO DAILY [facility] PRN Reason: Protocol Last Admin: 01/27/17 11:30 Dose: 500 mg Budesonide (Pulmicort Respules) 0.25 mg IH [id number] [facility] Last Admin: 01/28/17 08:21 Dose: 0.25 mg Digoxin (Lanoxin) 0.125 mg PO 1400 [facility] Last Admin: 01/27/17 15:02 Dose: 0.125 mg Folic Acid (Folic Acid) 1 mg PO DAILY [facility] Last Admin: 01/27/17 11:30 Dose: 1 mg Guaifenesin (Robitussin) 100 mg PO Q4H PRN PRN Reason: Cough Last Admin: 01/27/17 23:01 Dose: 100 mg Ceftriaxone Sodium (Rocephin 1 Gram Ivpb) 100 mls @ 100 mls/hr IVPB DAILY [facility] PRN Reason: Protocol Last Admin: 01/27/17 11:30 Dose: 100 mls/hr Levalbuterol HCl (Xopenex) 0.63 mg IH TIDRESP [facility] Last Admin: 01/28/17 08:22 Dose: 0.63 mg Methylprednisolone (Solu-Medrol) 40 mg IVP Q12 [facility] Metoprolol Tartrate (Lopressor) 50 mg PO BRKDIN [facility] Last Admin: 01/27/17 18:31 Dose: 50 mg Pantoprazole Sodium (Protonix Ec Tab) 40 mg PO 0630 [facility] Last Admin: 01/28/17 06:44 Dose: 40 mg Tamsulosin HCl (Flomax) 0.4 mg PO DAILY [facility] Last Admin: 01/27/17 11:29 Dose: 0.4 mg Warfarin Sodium (Coumadin) 4 mg PO 1800 [facility] PRN Reason: Protocol - Labs Labs: 01/28/17 05:30 01/28/17 05:30 PT 18.9 Seconds (9.9-11.8) H 01/28/17 05:30 INR 1.75 (0.93-1.08) H 01/28/17 05:30 APTT 49.7 Seconds (23.7-30.8) H 01/26/17 15:14 - Constitutional Appears: Non-toxic, No Acute Distress - Head Exam Head Exam: ATRAUMATIC, NORMOCEPHALIC - Eye Exam Eye Exam: Normal appearance. absent: Conjunctival injection, Scleral icterus - ENT Exam ENT Exam: Mucous Membranes Moist, Normal Oropharynx - Respiratory Exam Respiratory Exam: Rhonchi (cleared after coughing), NORMAL BREATHING PATTERN. absent: Accessory Muscle Use, Rales, Respiratory Distress - Cardiovascular Exam Cardiovascular Exam: Irregular Rhythm, +S1, +S2 - GI/Abdominal Exam GI & Abdominal Exam: Soft. absent: Distended, Tenderness - Extremities Exam Extremities Exam: absent: Calf Tenderness, Pedal Edema, Tenderness - Back Exam Back Exam: NORMAL INSPECTION - Neurological Exam Neurological Exam: Alert, Awake, Oriented x3 - Psychiatric Exam Psychiatric exam: Normal Affect, Normal Mood - Skin Skin Exam: Dry, Intact, Normal Color, Warm Assessment and Plan - Assessment and Plan (Free Text) Assessment: 81M with PMH including CHF, COPD, a fib, DVT, and GERD who presented to the ED with 3 days of worsening SOB and cough 1. Community-Acquired Pneumonia Symptoms improving, no acute respiratory distress on 3L O2 via NC 01/27/16: CXR shows LLL pneumonia Continue admission on telemetry Cardiology consulted, recs appreciated Pulm recs: decrease solumedrol to 40mg Q12 Xopenex 0.63 mg IN TIDRESP Budesonide 0.25 mg IH [id number] Rocephin 1 gm IVPB daily Azithromycin 500 mg PO daily Robotussin 100 mg PO Q4H PRN ECHO taken: LV systolic function is moderately impaired. Ejection fraction of 25 -30%. The aortic valve is moderately calcified. Mild aortic and tricuspid regurgitation, moderate mitral regurgitation and pulmonary hypertension. UA: trace ketones, no signs of a UTI Blood culture--results pending Sputum culture--results pending 2. Elevated Troponin heart strain vs cardiac event Cardiac enzymes x 3 - first one slightly elevated (0.17), decreased to 0.09 by third result Cardio consult: likely due to COPD/pulmonary stress, appreciate recs ECHO taken, see above result EKG: afib with RBB 3. Atrial fibrillation Cardio consult, continue to follow recs INR not within therapeutic range: 1.75 Increased coumadin to 4 mg daily Digoxin 0.125 PO daily Normotensive today, continue Metoprolol 50 mg PO BID ECHO results as above EKG: afib with RBB, three episodes of Afib overnight 4. CHF Cardio consulted BNP [id number] Digoxin 0.125 PO daily Metoprolol 50 mg PO BID ECHO results: see above EKG: afib with RBBB 5. COPD Pulm consult, Dr. Roberson recs appreciated Xopenex 0.63 mg IN TIDRESP Budesonide 0.25 mg IH [id number] Solumedrol 40mg Q12 Rocephin 1 gm IVPB daily Azithromycin 500 mg PO daily Robotussin 100 mg PO Q4H PRN CXR shows LLL pneumonia Blood culture--results pending Sputum culture--results pending 6. History of DVT INR 1.75, subtherapeutic Coumadin increased to 4mg 7. HLD Lipitor 10 mg PO HS 8. BPH Flomax 0.4 mg PO daily 9. Gout Allopurinol 300 mg PO daily 10. Prophylactic Measures Protonix 40 mg PO daily Folic Acid 1 mg PO daily PT HHD Aspiration and Fall precautions Elevate head of Bed to 30 degrees Dispo: anticipate continued inpatient admission on telemetry for at least another 24 hours. Will need skilled physical therapy outpatient. If patient is unable to pass a walking O2 sat test, will have to go to subacute rehab. Pt examined and plan discussed with attending, Dr. Silverio Blue, PGY1 <Eula Sawyer - Last Filed: 01/28/17 16:28> Objective - Vital Signs/Intake and Output Vital Signs (last 24 hours): Temp Pulse Resp BP Pulse Ox 97.9 F 93 H 20 133/72 97 01/28/17 12:00 01/28/17 12:00 01/28/17 12:00 01/28/17 12:00 01/28/17 06:00 Intake and Output: 01/28/17 01/28/17 06:59 18:59 Intake Total 837 Output Total 750 Balance 87 - Medications Medications: Current Medications Allopurinol (Zyloprim) 300 mg PO DAILY [facility] Last Admin: 01/28/17 10:16 Dose: 300 mg Arformoterol Tartrate (Brovana) 15 mcg IH [id number] [facility] Last Admin: 01/28/17 08:21 Dose: 15 mcg Atorvastatin Calcium (Lipitor) 10 mg PO DIN [facility] Last Admin: 01/27/17 18:34 Dose: 10 mg Azithromycin (Zithromax) 500 mg PO DAILY [facility] PRN Reason: Protocol Last Admin: 01/28/17 10:17 Dose: 500 mg Budesonide (Pulmicort Respules) 0.25 mg IH [id number] [facility] Last Admin: 01/28/17 08:21 Dose: 0.25 mg Digoxin (Lanoxin) 0.125 mg PO 1400 [facility] Last Admin: 01/27/17 15:02 Dose: 0.125 mg Folic Acid (Folic Acid) 1 mg PO DAILY [facility] Last Admin: 01/28/17 10:16 Dose: 1 mg Guaifenesin (Robitussin) 100 mg PO Q4H PRN PRN Reason: Cough Last Admin: 01/27/17 23:01 Dose: 100 mg Ceftriaxone Sodium (Rocephin 1 Gram Ivpb) 100 mls @ 100 mls/hr IVPB DAILY [facility] PRN Reason: Protocol Last Admin: 01/28/17 10:17 Dose: 100 mls/hr Levalbuterol HCl (Xopenex) 0.63 mg IH TIDRESP [facility] Last Admin: 01/28/17 14:02 Dose: 0.63 mg Methylprednisolone (Solu-Medrol) 40 mg IVP Q12 [facility] Last Admin: 01/28/17 10:17 Dose: 40 mg Metoprolol Tartrate (Lopressor) 50 mg PO BRKDIN [facility] Last Admin: 01/28/17 10:16 Dose: 50 mg Pantoprazole Sodium (Protonix Ec Tab) 40 mg PO 0630 [facility] Last Admin: 01/28/17 06:44 Dose: 40 mg Tamsulosin HCl (Flomax) 0.4 mg PO DAILY [facility] Last Admin: 01/28/17 10:16 Dose: 0.4 mg Warfarin Sodium (Coumadin) 4 mg PO 1800 [facility] PRN Reason: Protocol - Labs Labs: 01/28/17 05:30 01/28/17 05:30 PT 18.9 Seconds (9.9-11.8) H 01/28/17 05:30 INR 1.75 (0.93-1.08) H 01/28/17 05:30 APTT 49.7 Seconds (23.7-30.8) H 01/26/17 15:14 Assessment and Plan - Assessment and Plan (Free Text) Assessment: Attending note; Patient seen and examined with resident. Patient is a 81 Male with PMH CHF, COPD, Atrial fibrillation, history of Colon CA, melanoma, history of DVT presents to [facility] with complaint of shortness of breath and cough. chest x-ray showed left lower lobe pneumonia. Continue oxygen, DuoNeb, IV Rocephin and Zithromax. Clinically improving. Pulmonary evaluation appreciated. INR is 1.75.. continue coumadin 4 mg daily. rapid A. fib; resolved. Elevated troponin; possible demand ischemia. troponin is trending down. Cardiology evaluation appreciated. EF is 25 to 30%. needs close follow up with cardiology as outpatient. PT evaluation appreciated. gait instability is Improving slowly. Possible TCU vs home. options given to family. Case discussed with patient's in detail. upon discharge the patient will follow-up with PMD Dr. Baez. case discussed with PMD in detail.
[2017-01-28] MEDS: cefTRIAXone 1 gm 100 ML IVPB SCH (10:17)
[2017-01-28] MEDS: MethylPREDNISolone 40 mg Vial IVP SCH ×2 (10:17→21:07)
[2017-01-28] MEDS: Digoxin 125 mcg (0.125 mg) Tab PO SCH (18:21)
[2017-01-29] MEDS: Pantoprazole 40 mg EC Tab PO SCH (05:49)
[2017-01-29 07:41] LABS: INR 1.52 (0.93-1.08)
[2017-01-29] MEDS: Digoxin 125 mcg (0.125 mg) Tab PO SCH (08:34)
[2017-01-29 08:35] VITALS: PULSE 102
--- NOTE | 2017-01-29 08:55 | CP.PCM.PN ---
Subjective - Date & Time of Evaluation Date of Evaluation: 01/29/17 Time of Evaluation: 07:40 Objective - Vital Signs/Intake and Output Vital Signs (last 24 hours): Temp Pulse Resp BP Pulse Ox 97.8 F 76 18 95/57 L 97 01/29/17 05:53 01/29/17 06:00 01/29/17 05:53 01/29/17 05:53 01/29/17 05:53 Intake and Output: 01/29/17 01/29/17 06:59 18:59 Output Total 400 Balance -400 - Medications Medications: Current Medications Allopurinol (Zyloprim) 300 mg PO DAILY [facility] Last Admin: 01/28/17 10:16 Dose: 300 mg Arformoterol Tartrate (Brovana) 15 mcg IH [id number] [facility] Last Admin: 01/28/17 19:21 Dose: 15 mcg Atorvastatin Calcium (Lipitor) 10 mg PO DIN [facility] Last Admin: 01/28/17 18:22 Dose: 10 mg Azithromycin (Zithromax) 500 mg PO DAILY [facility] PRN Reason: Protocol Last Admin: 01/28/17 10:17 Dose: 500 mg Budesonide (Pulmicort Respules) 0.25 mg IH [id number] [facility] Last Admin: 01/28/17 19:21 Dose: 0.25 mg Digoxin (Lanoxin) 0.125 mg PO 1400 [facility] Last Admin: 01/29/17 08:34 Dose: 0.125 mg Folic Acid (Folic Acid) 1 mg PO DAILY [facility] Last Admin: 01/28/17 10:16 Dose: 1 mg Guaifenesin (Robitussin) 100 mg PO Q4H PRN PRN Reason: Cough Last Admin: 01/27/17 23:01 Dose: 100 mg Ceftriaxone Sodium (Rocephin 1 Gram Ivpb) 100 mls @ 100 mls/hr IVPB DAILY [facility] PRN Reason: Protocol Last Admin: 01/28/17 10:17 Dose: 100 mls/hr Levalbuterol HCl (Xopenex) 0.63 mg IH TIDRESP [facility] Last Admin: 01/28/17 19:22 Dose: 0.63 mg Metoprolol Tartrate (Lopressor) 50 mg PO BRKDIN [facility] Last Admin: 01/29/17 08:36 Dose: Not Given Pantoprazole Sodium (Protonix Ec Tab) 40 mg PO 0630 [facility] Last Admin: 01/29/17 05:49 Dose: 40 mg Prednisone (Prednisone Tab) 40 mg PO DAILY [facility] Tamsulosin HCl (Flomax) 0.4 mg PO DAILY [facility] Last Admin: 01/28/17 10:16 Dose: 0.4 mg Warfarin Sodium (Coumadin) 4 mg PO 1800 [facility] PRN Reason: Protocol Last Admin: 01/28/17 18:21 Dose: 4 mg - Labs Labs: 01/28/17 05:30 01/28/17 05:30 PT 16.4 Seconds (9.9-11.8) H 01/29/17 06:30 INR 1.52 (0.93-1.08) H 01/29/17 06:30 APTT 49.7 Seconds (23.7-30.8) H 01/26/17 15:14
--- NOTE | 2017-01-29 09:02 | CP.PCM.PN ---
Subjective - Date & Time of Evaluation Date of Evaluation: 01/29/17 Time of Evaluation: 08:00 - Subjective Subjective: Stable on 2R. No CP or SOB. He feels better. V/S noted. AF PE: Lungs: rhonchi L>R Cor.: irreg., S1s2. Sys. murmur noted Abd.: soft Ext.; no edema Neuro.: alert Labs noted. INR=1.52 BC x 2 NG at 48 hrs. Echo done: Mod/Sev. LVD, Mld and AI, Mod. MR, Mild TR, moderate PH. Objective - Vital Signs/Intake and Output Vital Signs (last 24 hours): Temp Pulse Resp BP Pulse Ox 97.8 F 76 18 95/57 L 97 01/29/17 05:53 01/29/17 06:00 01/29/17 05:53 01/29/17 05:53 01/29/17 05:53 Intake and Output: 01/29/17 01/29/17 06:59 18:59 Output Total 400 Balance -400 - Medications Medications: Current Medications Allopurinol (Zyloprim) 300 mg PO DAILY [facility] Last Admin: 01/28/17 10:16 Dose: 300 mg Arformoterol Tartrate (Brovana) 15 mcg IH [id number] [facility] Last Admin: 01/28/17 19:21 Dose: 15 mcg Atorvastatin Calcium (Lipitor) 10 mg PO DIN [facility] Last Admin: 01/28/17 18:22 Dose: 10 mg Azithromycin (Zithromax) 500 mg PO DAILY [facility] PRN Reason: Protocol Last Admin: 01/28/17 10:17 Dose: 500 mg Budesonide (Pulmicort Respules) 0.25 mg IH [id number] [facility] Last Admin: 01/28/17 19:21 Dose: 0.25 mg Digoxin (Lanoxin) 0.125 mg PO 1400 [facility] Last Admin: 01/29/17 08:34 Dose: 0.125 mg Folic Acid (Folic Acid) 1 mg PO DAILY [facility] Last Admin: 01/28/17 10:16 Dose: 1 mg Guaifenesin (Robitussin) 100 mg PO Q4H PRN PRN Reason: Cough Last Admin: 01/27/17 23:01 Dose: 100 mg Ceftriaxone Sodium (Rocephin 1 Gram Ivpb) 100 mls @ 100 mls/hr IVPB DAILY [facility] PRN Reason: Protocol Last Admin: 01/28/17 10:17 Dose: 100 mls/hr Levalbuterol HCl (Xopenex) 0.63 mg IH TIDRESP [facility] Last Admin: 01/28/17 19:22 Dose: 0.63 mg Metoprolol Tartrate (Lopressor) 50 mg PO BRKDIN [facility] Last Admin: 01/29/17 08:36 Dose: Not Given Pantoprazole Sodium (Protonix Ec Tab) 40 mg PO 0630 [facility] Last Admin: 01/29/17 05:49 Dose: 40 mg Prednisone (Prednisone Tab) 40 mg PO DAILY [facility] Tamsulosin HCl (Flomax) 0.4 mg PO DAILY [facility] Last Admin: 01/28/17 10:16 Dose: 0.4 mg Warfarin Sodium (Coumadin) 4 mg PO 1800 [facility] PRN Reason: Protocol Last Admin: 01/28/17 18:21 Dose: 4 mg Warfarin Sodium (Coumadin) 5 mg PO ONCE ONE Stop: 01/29/17 18:01 - Labs Labs: 01/28/17 05:30 01/28/17 05:30 PT 16.4 Seconds (9.9-11.8) H 01/29/17 06:30 INR 1.52 (0.93-1.08) H 01/29/17 06:30 APTT 49.7 Seconds (23.7-30.8) H 01/26/17 15:14 Assessment and Plan - Assessment and Plan (Free Text) Plan: Assessment: Cough/SOB/Weakness LLL Pneumonia COPD Chronic AF Moderate LVD on echo with Mild and AI, moderate MR, mild TR and mod. PH HLD BPH Colon cancer s/p partial colectomy DVT/IVC Filter Former Smoker Plan: As per Pulm. and Dr. Sawyer/Team AB Warfarin 5 mg. today. Monitor INRs Continue cardiac meds. OOB/PT Out-pt cardiac f/u.
--- NOTE | 2017-01-29 09:18 | PN ---
DATE: 01/29/2017 SUBJECTIVE: The patient appears very comfortable this morning. He is not short of breath at rest. PHYSICAL EXAMINATION: VITAL SIGNS: Temperature is 97.8, pulse 76, respirations 18, blood pressure 95/ 57. Oxygen saturation on nasal cannula is 97%. HEENT: Normocephalic, atraumatic. No JVD. CARDIOVASCULAR: Systolic ejection murmur at the lower left sternal border. Questionable S3 gallop. LUNGS: Less crackles -- left base. Minimal/less rhonchi. No wheezing. EXTREMITIES: No clubbing, cyanosis, or edema. Calves are nontender to palpation. GASTROINTESTINAL: Abdomen is soft, nontender, nondistended. Bowel sounds are positive. SKIN: No acute rash. NEUROLOGIC: Limited at the present time. IMPRESSION: 1. Left lower lobe pneumonia. 2. Acute bronchitis. 3. Chronic obstructive pulmonary disease. 4. Positive troponin, rule out myocardial infarction. 5. Mild congestive heart failure. 6. Atrial fibrillation. PLAN: The patient appears very comfortable this morning. He is not short of breath at rest. He states to feeling "wonderful" this morning. On physical exam, his bronchospasm continues to resolve. In addition, there is no significant alveolar-arterial gradient. I will continue with the current nebulizer treatments and change to oral steroids this morning. I would continue with the current antibiotics for now. There are no temperatures noted. The leukocytosis has resolved. Blood cultures remain negative at this point in time. I would continue with the cardiology evaluation. Input by Dr. Chauhan is noted. Clinical status of the patient is significantly improved -- compared to the initial presentation. I will discuss the above with the attending physician. Sachin Roberson MD cc: [id number] TT: 01/29/2017 09:17:16 Confirmation # [id number] Dictation # [id number] en MTDD
[2017-01-29] MEDS: cefTRIAXone 1 gm 100 ML IVPB SCH (09:41)
--- NOTE | 2017-01-29 10:15 | CP.PCM.DIS ---
<Ha Beard - Last Filed: 01/29/17 13:14> Provider - Provider Date of Admission: 01/26/17 15:58 Attending physician: Eula Sawyer MD Primary care physician: Jett Baez MD Consults: Cardio: Robel Pulm: Karol Time Spent in preparation of Discharge (in minutes): 45 Diagnosis - Discharge Diagnosis (1) Pneumonia Status: Acute Comment: See hospital course (2) Atrial fibrillation Status: Acute Comment: See hospital course (3) COPD exacerbation Status: Acute Comment: See hospital course (4) DVT (deep venous thrombosis) Status: Acute Comment: History of DVT with IVC filter placement. See hospital course (5) CHF (congestive heart failure) Status: Acute Comment: See hospital course (6) Elevated troponin Status: Acute Comment: See hospital course (7) BPH (benign prostatic hyperplasia) Status: Acute Comment: See hospital course Hospital Course - Lab Results Lab Results: Most Recent Lab Values WBC 10.8 10^3/ul (4.5-11.0) 01/28/17 05:30 RBC 3.17 10^6/uL (3.5-6.1) L 01/28/17 05:30 Hgb 10.9 gm/dL (14.0-18.0) L 01/28/17 05:30 Hct 32.2 % (42.0-52.0) L 01/28/17 05:30 MCV 101.6 fL (80.0-105.0) 01/28/17 05:30 MCH 34.4 pg (25.0-35.0) 01/28/17 05:30 MCHC 33.9 g/dl (31.0-37.0) 01/28/17 05:30 RDW 12.8 % (11.5-14.5) 01/28/17 05:30 Plt Count 244 10^3/uL (120.0-450.0) 01/28/17 05:30 MPV 10.3 fl (7.0-11.0) 01/28/17 05:30 Gran % 79.7 % (50.0-68.0) H 01/26/17 15:14 Lymph % (Auto) 10.0 % (22.0-35.0) L 01/26/17 15:14 Camb[place] % (Auto) 10.1 % (1.0-6.0) H 01/26/17 15:14 Eos % (Auto) 0.1 % (1.5-5.0) L 01/26/17 15:14 Baso % (Auto) 0.1 % (0.0-3.0) 01/26/17 15:14 Gran # 11.09 (1.4-6.5) H 01/26/17 15:14 Lymph # 1.4 (1.2-3.4) 01/26/17 15:14 Cambria # 1.4 (0.1-0.6) H 01/26/17 15:14 Eos # 0.0 (0.0-0.7) 01/26/17 15:14 Baso # 0.02 K/mm3 (0.0-2.0) 01/26/17 15:14 PT 16.4 Seconds (9.9-11.8) H 01/29/17 06:30 INR 1.52 (0.93-1.08) H 01/29/17 06:30 APTT 49.7 Seconds (23.7-30.8) H 01/26/17 15:14 Sodium 139 mmol/L (132-148) 01/28/17 05:30 Potassium 3.8 mmol/L (3.6-5.0) 01/28/17 05:30 Chloride 101 mmol/L (98-107) 01/28/17 05:30 Carbon Dioxide 30 mmol/L (21-33) 01/28/17 05:30 Anion Gap 12 (10-20) 01/28/17 05:30 BUN 37 mg/dL (7-21) H 01/28/17 05:30 Creatinine 1.1 mg/dL (0.5-1.4) 01/28/17 05:30 Est GFR ( Amer) > 60 01/28/17 05:30 Est GFR (Non-Af Amer) > 60 01/28/17 05:30 Random Glucose 161 mg/dL (70-110) H 01/28/17 05:30 Calcium 8.7 mg/dL (8.4-10.5) 01/28/17 05:30 Total Bilirubin 1.2 mg/dL (0.2-1.3) 01/26/17 15:14 AST 59 U/L (15-59) 01/26/17 15:14 ALT 27 U/L (7-56) 01/26/17 15:14 Alkaline Phosphatase 88 U/L (38-133) 01/26/17 15:14 Lactate Dehydrogenase 463 U/L (333-699) 01/27/17 06:30 Total Creatine Kinase 79 U/L (35-230) 01/27/17 06:30 Troponin I 0.09 ng/mL D 01/27/17 06:30 NT-Pro-B Natriuret Pep 71029 pg/mL (0-450) H 01/26/17 15:14 Total Protein 8.2 g/dL (5.8-8.3) 01/26/17 15:14 Albumin 4.3 g/dL (3.0-4.8) 01/26/17 15:14 Globulin 3.9 gm/dL 01/26/17 15:14 Albumin/Globulin Ratio 1.1 (1.1-1.8) 01/26/17 15:14 Lipase 44 U/L (23-300) 01/26/17 15:14 Urine Color Yellow (YELLOW) 01/26/17 15:00 Urine Appearance Clear (CLEAR) 01/26/17 15:00 Urine pH 6.0 (4.7-8.0) 01/26/17 15:00 Ur Specific Hamilton 1.020 (1.005-1.035) 01/26/17 15:00 Urine Protein Negative mg/dL (<30 mg/dL) 01/26/17 15:00 Urine Glucose (UA) Negative mg/dL (NEGATIVE) 01/26/17 15:00 Urine Ketones Trace mg/dL (NEGATIVE) H 01/26/17 15:00 Urine Blood Negative (NEGATIVE) 01/26/17 15:00 Urine Nitrate Negative (NEGATIVE) 01/26/17 15:00 Urine Bilirubin Negative (NEGATIVE) 01/26/17 15:00 Urine Urobilinogen 0.2 E.U./dL (<1 E.U./dL) 01/26/17 15:00 Ur Leukocyte Esterase Negative Juaquin/uL (NEGATIVE) 01/26/17 15:00 Digoxin 0.5 ng/mL (0.8-2.0) L 01/26/17 15:14 - Hospital Course Hospital Course: 81 year-old male, with PMH of CHF, COPD, Atrial fibrillation, history of colon cancer, melanoma, and history of DVT presented to [facility] with chief complaint of worsening shortness of breath and cough. Symptoms began one week ago, but his symptoms have gotten progressively worse over the past two days. His symptoms become worse with exertion. Admits to dizziness/lightheadedness and productive cough with reji sputum. Denies fever/chills, syncope, vertigo, CP, palpitations , abdominal pain, n/v/d/c, incontinence, numbness and tingling. Patient is admitted for LLL community-acquired pneumonia. During his hospital stay, he was admitted to [facility] and started on IV abx and breathing treatments. Cardio and Pulm were consulted. He had an ECHO, EKG, CXR, UA, blood cultures, and sputum culture. ECHO showed that he has an ejection fraction of 25-30%. EKG showed a. fib with rapid ventricular response, RBBB, and left anterior fascicular block. CXR showed LLL pneumonia and mild increase in pulmonary vascular congestion. UA was negative. Sputum culture showed normal oral elizabeth. He had a slight rise on his first troponin, and subsequent troponins were negative. BNP was elevated. Over the next two days, patient improved on IV abx and breathing treatments. On 01/29, patient was deemed medically stable for discharge to home by Dr. Sawyer. This is just a summary. Please see EMR for further details. Discharge Exam - Head Exam Head Exam: ATRAUMATIC, NORMOCEPHALIC - Eye Exam Eye Exam: EOMI, Normal appearance Pupil Exam: PERRL - ENT Exam ENT Exam: Mucous Membranes Moist - Neck Exam Neck exam: Normal Inspection - Respiratory Exam Respiratory Exam: Clear to PA & Lateral, NORMAL BREATHING PATTERN. absent: Accessory Muscle Use, Respiratory Distress - Cardiovascular Exam Cardiovascular Exam: RRR, +S1, +S2 - GI/Abdominal Exam GI & Abdominal Exam: Normal Bowel Sounds, Soft. absent: Tenderness - Extremities Exam Extremities exam: normal capillary refill, pedal pulses present - Back Exam Back exam: absent: CVA tenderness (L), CVA tenderness (R) - Neurological Exam Neurological exam: Alert, CN II-XII Intact, Normal Gait, Oriented x3 - Psychiatric Exam Psychiatric exam: Normal Affect, Normal Mood - Skin Skin Exam: Dry, Intact, Normal Color, Warm Discharge Plan - Discharge Medications Prescriptions: Amoxicillin/Clavulanate [Augmentin 875 MG-125 MG] 1 tab PO BID #14 tab Lactobacillus Acidophilus [Bacid Acidophilus] 1 cap PO BID #14 cap predniSONE [Prednisone] See Taper PO DAILY #30 tab - Follow Up Plan Condition: STABLE Disposition: HOME/ ROUTINE Instructions: Heart Failure (DC), Atrial Fibrillation (DC), Viral Pneumonia (DC ), Emphysema (DC) Additional Instructions: Patient is medically stable for discharge to home by Dr. Sawyer. Patient to start new medication Predisnone taper and Augmentin 875/125 mg by mouth twice per day. Patient is to hold Metoprolol today and follow up with PMD Dr. Vicente on Wednesday. Patient is to resume all other home medications as previously prescribed. Patient is also to follow up with Pulm (Dr. Roberson) and Cardio (Dr. Huston) within 1 week of discharge. He may resume physical activity as tolerated. Please return to ED if symptoms persist or condition worsens. All instructions stated above were discussed with the patient and her spouse. They both verbalized understanding and agreement. Referrals: Salazar Huston MD [Staff Provider] - Sachin Roberson MD [Staff Provider] - Jett Baez MD [Primary Care Provider] - <Eula Sawyer - Last Filed: 01/29/17 15:18> Provider - Provider Date of Admission: 01/26/17 15:58 Attending physician: Eula Sawyer MD Primary care physician: Jett Baez MD Time Spent in preparation of Discharge (in minutes): 35 Hospital Course - Lab Results Lab Results: Most Recent Lab Values WBC 10.8 10^3/ul (4.5-11.0) 01/28/17 05:30 RBC 3.17 10^6/uL (3.5-6.1) L 01/28/17 05:30 Hgb 10.9 gm/dL (14.0-18.0) L 01/28/17 05:30 Hct 32.2 % (42.0-52.0) L 01/28/17 05:30 MCV 101.6 fL (80.0-105.0) 01/28/17 05:30 MCH 34.4 pg (25.0-35.0) 01/28/17 05:30 MCHC 33.9 g/dl (31.0-37.0) 01/28/17 05:30 RDW 12.8 % (11.5-14.5) 01/28/17 05:30 Plt Count 244 10^3/uL (120.0-450.0) 01/28/17 05:30 MPV 10.3 fl (7.0-11.0) 01/28/17 05:30 Gran % 79.7 % (50.0-68.0) H 01/26/17 15:14 Lymph % (Auto) 10.0 % (22.0-35.0) L 01/26/17 15:14 Camb[place] % (Auto) 10.1 % (1.0-6.0) H 01/26/17 15:14 Eos % (Auto) 0.1 % (1.5-5.0) L 01/26/17 15:14 Baso % (Auto) 0.1 % (0.0-3.0) 01/26/17 15:14 Gran # 11.09 (1.4-6.5) H 01/26/17 15:14 Lymph # 1.4 (1.2-3.4) 01/26/17 15:14 Camb[place] # 1.4 (0.1-0.6) H 01/26/17 15:14 Eos # 0.0 (0.0-0.7) 01/26/17 15:14 Baso # 0.02 K/mm3 (0.0-2.0) 01/26/17 15:14 PT 16.4 Seconds (9.9-11.8) H 01/29/17 06:30 INR 1.52 (0.93-1.08) H 01/29/17 06:30 APTT 49.7 Seconds (23.7-30.8) H 01/26/17 15:14 Sodium 139 mmol/L (132-148) 01/28/17 05:30 Potassium 3.8 mmol/L (3.6-5.0) 01/28/17 05:30 Chloride 101 mmol/L (98-107) 01/28/17 05:30 Carbon Dioxide 30 mmol/L (21-33) 01/28/17 05:30 Anion Gap 12 (10-20) 01/28/17 05:30 BUN 37 mg/dL (7-21) H 01/28/17 05:30 Creatinine 1.1 mg/dL (0.5-1.4) 01/28/17 05:30 Est GFR ( Amer) > 60 01/28/17 05:30 Est GFR (Non-Af Amer) > 60 01/28/17 05:30 Random Glucose 161 mg/dL (70-110) H 01/28/17 05:30 Calcium 8.7 mg/dL (8.4-10.5) 01/28/17 05:30 Total Bilirubin 1.2 mg/dL (0.2-1.3) 01/26/17 15:14 AST 59 U/L (15-59) 01/26/17 15:14 ALT 27 U/L (7-56) 01/26/17 15:14 Alkaline Phosphatase 88 U/L (38-133) 01/26/17 15:14 Lactate Dehydrogenase 463 U/L (333-699) 01/27/17 06:30 Total Creatine Kinase 79 U/L (35-230) 01/27/17 06:30 Troponin I 0.09 ng/mL D 01/27/17 06:30 NT-Pro-B Natriuret Pep 28016 pg/mL (0-450) H 01/26/17 15:14 Total Protein 8.2 g/dL (5.8-8.3) 01/26/17 15:14 Albumin 4.3 g/dL (3.0-4.8) 01/26/17 15:14 Globulin 3.9 gm/dL 01/26/17 15:14 Albumin/Globulin Ratio 1.1 (1.1-1.8) 01/26/17 15:14 Lipase 44 U/L (23-300) 01/26/17 15:14 Urine Color Yellow (YELLOW) 01/26/17 15:00 Urine Appearance Clear (CLEAR) 01/26/17 15:00 Urine pH 6.0 (4.7-8.0) 01/26/17 15:00 Ur Specific Hamilton 1.020 (1.005-1.035) 01/26/17 15:00 Urine Protein Negative mg/dL (<30 mg/dL) 01/26/17 15:00 Urine Glucose (UA) Negative mg/dL (NEGATIVE) 01/26/17 15:00 Urine Ketones Trace mg/dL (NEGATIVE) H 01/26/17 15:00 Urine Blood Negative (NEGATIVE) 01/26/17 15:00 Urine Nitrate Negative (NEGATIVE) 01/26/17 15:00 Urine Bilirubin Negative (NEGATIVE) 01/26/17 15:00 Urine Urobilinogen 0.2 E.U./dL (<1 E.U./dL) 01/26/17 15:00 Ur Leukocyte Esterase Negative Juaquin/uL (NEGATIVE) 01/26/17 15:00 Digoxin 0.5 ng/mL (0.8-2.0) L 01/26/17 15:14 - Hospital Course Hospital Course: Attending note; Patient seen and examined with resident. Patient is a 81 Male with PMH CHF, COPD, Atrial fibrillation, history of Colon CA, melanoma, history of DVT presents to [facility] with complaint of shortness of breath and cough. chest x-ray showed left lower lobe pneumonia. Treated with oxygen, DuoNeb, IV Rocephin and Zithromax. Clinically improving. Pulmonary evaluation appreciated. cleared for discharge. A fib; INR is 1.52. coumadin 5 mg given today. Patient will continue 2 mg coumadin at home and check INR on Wednesday at DR. Baez's office. Elevated troponin; troponin trended down. Cardiology evaluation appreciated. EF is 25 to 30%. needs close follow up with cardiology as outpatient. mild hypotension without symptoms; patient will hold metoprolol and recheck BP at DR. Baez's office and restart. patient will also follow up with Cardiology Dr. rao next week. PT evaluation appreciated. Ambulating fine without hypoxia and tachycardia. Case discussed with patient's in detail. upon discharge the patient will follow-up with PMD Dr. Baez. case discussed with PMD in detail. Diagnosis; pneumonia copd a fib cardiomyopathy bph
[2017-01-29 13:19] VITALS: BP 91/56; PULSE 69; RESP 20; TEMP 97.3
== END 2017-01-29 14:38 | disposition home or self-care (01) | DRG 190 ==
LOC: ED 14:09 → ERH 15:58 → 2RNO 21:00
PROVIDERS: ADMIT Internal Medicine; ATTEND Internal Medicine
PROC: 3E0F7GC Introduction of Other Therapeutic Substance into Respiratory Tract, Via Natural or Artificial Opening (ICD-10-PCS; principal; 2017-01-27)
DX: J44.0 Chronic obstructive pulmonary disease with (acute) lower respiratory infection (principal); J18.9 Pneumonia, unspecified organism; J44.1 Chronic obstructive pulmonary disease with (acute) exacerbation; I42.9 Cardiomyopathy, unspecified; J20.9 Acute bronchitis, unspecified; I48.2 Chronic atrial fibrillation; I11.0 Hypertensive heart disease with heart failure; I50.9 Heart failure, unspecified; D64.9 Anemia, unspecified; I08.3 Combined rheumatic disorders of mitral, aortic and tricuspid valves; N40.0 Benign prostatic hyperplasia without lower urinary tract symptoms; K21.9 Gastro-esophageal reflux disease without esophagitis; E78.5 Hyperlipidemia, unspecified; E55.9 Vitamin D deficiency, unspecified; M10.9 Gout, unspecified; Z85.820 Personal history of malignant melanoma of skin; Z85.038 Personal history of other malignant neoplasm of large intestine; Z79.01 Long term (current) use of anticoagulants; Z87.891 Personal history of nicotine dependence; Z86.718 Personal history of other venous thrombosis and embolism; Z90.49 Acquired absence of other specified parts of digestive tract; Z80.0 Family history of malignant neoplasm of digestive organs; Z82.49 Family history of ischemic heart disease and other diseases of the circulatory system

== ENCOUNTER 2018-11-07 10:09 | Outpatient (CLI) | payer MEDICARE, BC | END 2018-11-07 10:10 | disposition home or self-care (01) | LOC: RAD 10:09 ==